=== PATIENT | female | born 1965 ===

== ENCOUNTER 2018-10-30 14:09 | Outpatient (CLI) | payer OTHER | END 2018-10-30 14:10 | disposition short-term general hospital (02) | LOC: EMS 14:09 | PROVIDERS: ATTEND Surgery | DX: S09.90XA Unspecified injury of head, initial encounter (principal); R41.82 Altered mental status, unspecified; W20.8XXA Other cause of strike by thrown, projected or falling object, initial encounter; Y92.009 Unspecified place in unspecified non-institutional (private) residence as the place of occurrence of the external cause | CPT/HCPCS: A0425; A0427 ==